=== PATIENT | female | born 1950 | race Caucasian/White ===

== ENCOUNTER 2018-03-30 11:07 | Day surgery (SDC) | payer OTHER, MEDICARE ==
[2018-03-30] MEDS ORDERED: ceFAZolin 2 GM/DEXTROSE 100 ML IV ONE (11:20)
[2018-03-30] MEDS ORDERED: LIDOCAINE 1% 2 ML INJ ID PRN (11:24)
[2018-03-30] MEDS ORDERED: LR 1,000 ML IV ONE (11:24)
--- NOTE | 2018-03-30 12:06 | PDHPUP ---
History & Physical Update H&P update statement: This history and physical update is based on an assessment of the patient which was completed after admission or registration (within 24 hours), but prior to the surgery/procedure. H&P update: H&P reviewed & patient examined, no change in patient's condition since H&P completed
[2018-03-30] MEDS ORDERED: BUPIVACAINE 0.5% 30 ML SDV ONE (12:08)
[2018-03-30] MEDS ORDERED: BACITRACIN 50,000 UNITS/10 ML SYR IRR ONE (12:09)
[2018-03-30] MEDS ORDERED: MIDAZOLAM 2 MG/2 ML VIAL ONE ×2 (12:23→12:42)
[2018-03-30] MEDS ORDERED: MIDAZOLAM 2 MG/2 ML VIAL IVP ONE (12:42)
--- NOTE | 2018-03-30 12:43 | PDANEPAE ---
ANE Past Medical History - Cardiovascular History Hx Hypertension: No Hx Arrhythmias: No Hx Chest Pain: No Hx Coronary Artery / Peripheral Vascular Disease: No Hx CHF / Valvular Disease: No Hx Palpitations: No - Pulmonary History Hx COPD: No Hx Asthma/Reactive Airway Disease: No Hx Recent Upper Respiratory Infection: No Hx Oxygen in Use at Home: No Hx Sleep Apnea: No Sleep Apnea Screening Result - Last Documented: Negative - Neurologic History Hx Cerebrovascular Accident: No Hx Seizures: No Hx Dementia: No - Endocrine History Hx Diabetes: No Obesity: mild - Renal History Hx Renal Disorders: No - Liver History Hx Hepatic Disorders: No - Neurological & Psychiatric Hx Hx Neurological and Psychiatric Disorders: No - Cancer History Hx Cancer: No - Congenital Disorder History Hx Congenital Disorders: No - GI History GERD: no Hx Gastrointestinal Disorders: No - Other Health History Other Health History: takes CBD gtts at night to help with sleep. States has sensitive skin, gets red easily. wears glasses - Chronic Pain History Chronic Pain: No - Surgical History Prior Surgeries: Rt. knee cap removal, 1979 ANE Review of Systems Review of Systems: - Exercise capacity METS (RN): 4 METS ANE Patient History - Allergies Allergies/Adverse Reactions: No Known Allergies Allergy (Verified 02/26/18 10:05) - Home Medications Home medications: home medication list seen and reviewed Home Medications: Cbd Oil 02/26/18 [Last Taken 03/28/18] - NPO status NPO Status: no food or drink >8 hours NPO Since - Liquids (Date): 03/30/18 NPO Since - Liquids (Time): 09:00 NPO Since - Solids (Date): 03/29/18 NPO Since - Solids (Time): 19:30 - Anes Hx Anes Hx: no prior problems - Smoking Hx Smoking Status: Never smoked - Family Anes Hx Family Hx Anesthesia Complications: none ANE Labs/Vital Signs - Vital Signs Blood Pressure: 150/85 Heart Rate: 99 Respiratory Rate: 21 O2 Sat (%): 95 Height: 162.56 cm Weight: 70.307 kg ANE Physical Exam - Airway Neck exam: FROM Mallampati Score: Class 2 Mouth exam: normal dental/mouth exam - Pulmonary Pulmonary: no respiratory distress, no rales or rhonchi, clear to auscultation - Cardiovascular Cardiovascular: regular rate and rhythym, no murmur, rub, or gallop - ASA Status ASA Status: II ANE Anesthesia Plan Anesthesia Plan: MAC
[2018-03-30] MEDS ORDERED: fentaNYL 100 MCG/2 ML INJ ONE (12:45)
[2018-03-30] MEDS ORDERED: PROPOFOL 200 MG/20 ML VIAL ONE ×2 (12:46→13:04)
[2018-03-30] MEDS ORDERED: LIDOCAINE 2% 2 ML INJ ONE ×2 (13:10)
[2018-03-30] MEDS ORDERED: PROPOFOL/EMULSION 500 MG/50 ML BOTTLE IV ONE (13:23)
[2018-03-30] MEDS ORDERED: NALOXONE HCL 0.4 MG/ML INJ IVP PRN (14:05)
[2018-03-30] MEDS ORDERED: oxyCODONE IR 5 MG TAB PO PRN (14:05)
[2018-03-30] MEDS ORDERED: HYDROCODONE/APAP 5/325 TAB PO PRN (14:05)
[2018-03-30] MEDS ORDERED: DEXAMETHASONE 4 MG/ML VIAL IVP PRN (14:05)
[2018-03-30] MEDS ORDERED: ONDANSETRON 4 MG/2 ML VIAL IVP PRN ×2 (14:05→14:17)
[2018-03-30] MEDS ORDERED: PROMETHAZINE HCL 25 MG/ML INJ IVP PRN (14:05)
[2018-03-30] MEDS ORDERED: fentaNYL 100 MCG/2 ML INJ IVP PRN (14:05)
[2018-03-30] MEDS ORDERED: LR 500 ML IV PRN (14:05)
[2018-03-30] MEDS ORDERED: ACETAMINOPHEN 500 MG TAB PO PRN (14:05)
[2018-03-30] MEDS ORDERED: ONDANSETRON DISINTEGRATING 4 MG TAB PO PRN (14:17)
[2018-03-30] MEDS ORDERED: OXYCODONE/APAP 5/325 TAB PO PRN (14:17)
--- NOTE | 2018-03-30 14:27 | POSTANESTH ---
Post Anesthetic Evaluation Cardiovascular Status: Normal, Stable, Similar to Pre-Op Cond Respiratory Status: Normal, Stable, Similar to Pre-op Cond. Level of Consciousness/Mental Status: Can Participate in Eval, Alert and Oriented Pain Control: Adequate, Prn Tx Ordered Nausea/Vomiting Control: Adequate, Prn Tx Ordered Complications Possibly Related to Anesthesia: None Noted
[2018-03-30 16:20] VITALS: BP 165/81
--- NOTE | 2018-03-30 16:53 | GOP ---
DATE OF OPERATION: 03/30/2018 SURGEON: Yogi Ye DPM [employer] W[employer] HELPER: None. ANESTHESIA: MAC with local 30 mL of 0.5% Marcaine plain. PREOPERATIVE DIAGNOSIS: 1. Hallux abductovalgus, left foot. 2. Metatarsus primus varus, left foot. 3. Congenital anomaly of toe, left foot. 4. Metatarsalgia, left foot. 5. Dislocated third metatarsophalangeal joint, left foot. POSTOPERATIVE DIAGNOSIS: 1. Hallux abductovalgus, left foot. 2. Metatarsus primus varus, left foot. 3. Congenital anomaly of toe, left foot. 4. Metatarsalgia, left foot. 5. Dislocated third metatarsophalangeal joint, left foot. PROCEDURE PERFORMED: 1. Bunionectomy, left foot. 2. First metatarsal with osteotomy and bone graft, left foot. 3. Osteotomy of 1st proximal phalanx, left foot. 4. Osteotomy of 2nd metatarsal, left foot. 5. Partial excision of 3rd metatarsal head, left foot. FINDINGS: Consistent with diagnosis. ESTIMATED BLOOD LOSS: Zero. DESCRIPTION OF PROCEDURE: After identification, the patient was brought in the operating room and pl aced on the operating table in the supine position. Following IV sedation, local anesthesia was obtai shreya on the patient's left foot utilizing a total of 30 mL of 0.5% Marcaine plain. A pneumatic ankle t ourniquet was placed around the patient's left ankle with ample padding. The foot was then scrubbed, prepped and draped in the usual aseptic manner. Esmarch bandage was utilized to exsanguinate the willy ent's left lower extremity and pneumatic ankle tourniquet was inflated. Attention was first directed to the medial aspect of the patient's left foot, where a 5 cm linear omkar gitudinal incision was made medial to the first metatarsophalangeal joint. This incision was deepened through the subcutaneous tissue to the level of the joint capsule, with care being taken to identify and retract vital neural and vascular structures. Bleeders were ligated and cauterized as necessary. Lenticular capsulorrhaphy was performed at the medial aspect of the 1st metatarsophalangeal joint. T his lenticular piece of capsule was passed from the operative field. The capsular structures were ref lected dorsally and plantarly, thus exposing the 1st metatarsophalangeal joint of the operative site. McGlamry elevator was inserted from medial to lateral to serve as a lateral ligamentous release of t he 1st metatarsophalangeal joint. Upon completion of this maneuver, the hallux was more easily transl ated into a more medial and corrected position on the first ray. Attention was then directed to the 1st metatarsal, where a [id number] Z-shaped scarf osteoto my was made from medial to lateral in the head, neck, and shaft of the 1st metatarsal bone. Upon comp letion of this [id number]-[id number] osteotomy, the capital fragment was translated laterally into a mo re corrected and anatomic position. Following temporary fixation, 2 x 3.5 headless Arthrex screws wer e driven obliquely across the osteotomy site to serve as stable fixation. Redundant medial bone shelf was excised, remodeled, and replaced into the 1st metatarsal osteotomy site to serve as a bone graft . It was noted that the hallux was still in abducted position. A decision was made to make a medially -based wedge osteotomy at the medial aspect of the 1st proximal phalanx, left foot. This osteotomy wa s performed through the original incision and original dissection. Upon completion of this osteotomy, the lateral cortex was left intact and the fragment was removed. Closing the osteotomy site translat ed the hallux into a more medial and corrected position. A nitinol staple was driven obliquely across the osteotomy site to serve as stable fixation. At this time, position of the 1st ray was noted to b e excellent. The fixation was noted to be extremely stable. The incision was flushed with normal ster ile saline solution. Capsular structures were reapproximated utilizing 2-0 Vicryl, subcutaneous tissu e reapproximated with 3-0 Vicryl, and skin reapproximated with 5-0 Vicryl in a running subcuticular s uture technique. Attention was then directed to the 3rd metatarsophalangeal joint, where a 3 cm linear longitudinal in cision was made over the metatarsophalangeal joint. This incision was deepened through the subcutaneo us tissue to the level of the joint capsule with care being taken to identify and retract all vital n eural and vascular structures. Bleeders were ligated and cauterized as necessary. Capsular structures were reflected medially and laterally, thus exposing the metatarsophalangeal joint at the operative site. A dorsal dislocation of the 3rd metatarsophalangeal joint was noted and approximately 2 cm retr acted. It was noted that the bone quality was extremely soft and attempted reduction of this dislocat ion was putting the bone at high risk of fracture in both the metatarsal and proximal phalanx. Decisi on was made to excise the 3rd metatarsal head at this time. An osteotomy was performed from dorsal-di stal to plantar-proximal in the neck of the 3rd metatarsal. The head was excised in toto and passed f rom the operative field. Because of the excision of the 3rd metatarsal head, it was noted that the 2nd metatarsal head is extr kira long and will need to be shortened as well to prevent future problems. A 3rd incision was made over the dorsal aspect of the 2nd metatarsophalangeal joint. Incision was deepened through the subcut aneous tissue with care being taken to identify and retract all vital neural and vascular structures. Bleeders were ligated and cauterized as necessary. A linear capsulotomy was performed over the dorsa l aspect of the 2nd metatarsophalangeal joint. Capsular structures were reflected medially and latera lly, thus exposing the 2nd metatarsophalangeal joint at the operative site. A Flavio osteotomy was made in the head, neck, and shaft from dorsal-distal to plantar-proximal in the 2nd metatarsal head. This was retracted on itself, shortening approximately 5 mm. Following temporary fixation, 2 x 2.0 Arthre x snap-off screws were driven obliquely across the osteotomy site. Redundant bone was removed and all rough bone edges were smoothed with a bur. Incisions were then flushed with normal sterile saline so lution. The remaining 2 incisions were closed with capsular structures reapproximated utilizing 3-0 V icryl, subcutaneous tissue reapproximated utilizing 3-0 Vicryl, and the skin reapproximated utilizing 5-0 Vicryl in a running subcuticular suture technique. All incisions were then dressed with Steri-St rips, Teixeira silk, 4 x 4 gauze, Webril, Lennie, Richar bandage. The patient transferred to the postoperati ve recovery area with vital signs stable and vascular status intact to the left foot. Patient tolerat ed the procedure and anesthesia well. HEMOSTASIS: Left pneumatic ankle tourniquet inflated to 250 mmHg for 63 minutes. INJECTABLES: None. MATERIALS: 3.5 headless Arthrex screw x2, nitinol staple x1, 2.0 snap-off Arthrex screw x2. CONDITION: Stable. /[id number]/MODL
== END 2018-03-30 16:20 | disposition home or self-care (01) ==
LOC: FSGY 11:07
PROVIDERS: ATTEND Podiatrist
DX: M20.12 Hallux valgus (acquired), left foot (principal); M77.42 Metatarsalgia, left foot; S93.125A Dislocation of metatarsophalangeal joint of left lesser toe(s), initial encounter
CPT/HCPCS: C1713; J0690; J2250; J2704; J3010